=== PATIENT | male | born 1950 | race Caucasian/White ===

== ENCOUNTER 2016-07-10 07:35 | Day surgery (SDC) | payer OTHER, MEDICARE ==
[2016-07-08 12:39] VITALS: BMI 23.7
[2016-07-10] MEDS ORDERED: MIDAZOLAM HCL 2 MG/2 ML SINGLE DOSE VIAL ONE ×2 (08:37→09:30)
[2016-07-10] MEDS ORDERED: ROPIVACAINE HCL 0.5% 30ML VIAL ONE (08:37)
[2016-07-10] MEDS ORDERED: SODIUM CHLORIDE 0.9% P/F 10 ML VIAL IJ ONE (08:37)
[2016-07-10] MEDS ORDERED: DEXAMETHASONE SOD PHOSPHATE/PF 10 MG/ML SDV ONE (08:37)
[2016-07-10] MEDS ORDERED: ceFAZolin SODIUM 1 GM VIAL ONE (09:29)
[2016-07-10] MEDS ORDERED: PROPOFOL 20 ML ONE (09:30)
[2016-07-10] MEDS ORDERED: LIDOCAINE 1%-EPI 1:100,000 30 ML MDV IJ ONE (09:57)
[2016-07-10] MEDS ORDERED: BUPIVACAINE HCL/PF 0.5% (5MG/ML) 10 ML VIAL ONE (09:58)
[2016-07-10] MEDS ORDERED: BUPIVACAINE HCL 0.25% 125 MG/50 ML VIAL ONE (09:58)
[2016-07-10] MEDS ORDERED: ePHEDrine SULFATE 50 MG/1 ML AMPULE ONE ×2 (09:59→10:13)
[2016-07-10] MEDS ORDERED: GUM MASTIC/STORAX/MSAL/ALCOHOL 1 DRP DROPSBTL MC ONE (11:57)
--- NOTE | 2016-07-10 12:45 | OP ---
DATE OF OPERATION: 07/10/2016 PREOPERATIVE DIAGNOSIS: Right quadriceps tendon rupture. POSTOPERATIVE DIAGNOSIS: Right quadriceps tendon rupture. PROCEDURE: Right quadriceps tendon repair. SURGEON: Rui Muro MD CENTER MACHINE OPERATOR: JUDITH Berger, whose skillful assistance was necessary for the safe and timely performance of this procedure. Ms. Winkler was able to provide limb positioning, child welfare assistant retraction, assist in suture passing and anchor passing during the procedure. This was all while the dentures lab technician was on the back table managing the implants and instruments. ANESTHESIA TYPE: General plus local. POSTOPERATIVE CONDITION: Stable. COMPLICATIONS: None. IMPLANTS: Arthrex SwiveLock 4.75 anchors x3. SPECIMENS: Muscle biopsy x1. INDICATION: This is a pleasant gentleman who had suffered a fall down stairs and was unable to ambulate well afterwards. He was seen in the office and found to have a distal quadriceps rupture. Treatment options, including nonoperative versus operative management, were discussed. We discussed nonoperative management would result in chronic quadriceps dysfunction and altered gait. We discussed operative management should restore normal gait or close to it. We reviewed operative risks in detail, including bleeding, infection, neurovascular injury, need for further surgery, such as manipulation or debridement or revision repair, chance of repair failure, arthrofibrosis. We discussed the recovery from surgery. We discussed medical risks such as DVT, PE, heart attack, stroke, or . We reviewed the use of perioperative DVT prophylaxis with aspirin. We discussed the use of antibiotics prior to the case. I addressed all the patient's and family's questions. They voiced understanding and elected to proceed. PROCEDURE: Patient was brought to the operating room, where general anesthesia was administered. The right lower extremity was then prepped and draped in the usual sterile fashion. A preoperative dose of antibiotics was given and the usual timeout procedure was performed. At this point, the limb was exsanguinated. The tourniquet was inflated to 250 mmHg. An incision was planned out over the area of the quadriceps tendon. This was carried down through skin and subcutaneous tissue. Electrocautery was used to control hemostasis. The fascia over the quadriceps was now split, exposing a large hematoma. This was evacuated. The knee was irrigated. The undersurface of the patella was palpated and there was some chondromalacia present. At this point, the superior pole of the patella was debrided. This was done using a curet, rongeur, as well as a bur given that there was a great deal of sclerotic bone present. In addition, some 2.0 drill holes were created in order to allow for better egress of the marrow contents of the patella. The distal quadriceps was also debrided of any nonviable tissue. At this point, 3 drill holes were created spaced out evenly across the superior surface of the patella. The holes were then tapped. SwiveLock anchors loaded with an extra FiberTape were then loaded into the medial and lateral most holes. The FiberWire sutures were now passed each with 1 end through the quadriceps tendon in a locking whipstitch fashion. Using a karina technique, the tendon was then drawn down to the superior patellar surface, maintaining the leg in full extension during this process. These were then tied. The FiberTape sutures were then passed in a whipstitch pattern with the more lateral limbs and then with the medial patterns they were passed in a Sarah type when the medial limbs were passed into the 3rd anchor and the 3rd anchor was seated to provide a mattress-type effect on the quadriceps tendon. The knee was now flexed to 30 degrees with no gapping of the tendon. The extra sutures from the middle anchor were also passed into a whipstitch locking-type pattern and tied as well. At this point, the retinaculum was repaired. This was done using No. 1 Vicryl in the retinacular tear. It did extend extensively both medially and laterally. There was a portion of the VMO muscle belly which also was involved in the tear and this was loosely approximated using No. 1 Vicryl as well. The VMO portion now a small piece was excised using a 15 blade and sent for biopsy at the request of the patient's primary physician. He wanted to rule out statin myositis. The wound was once again irrigated. The deep tissue was approximated using 0 Vicryl. The subcutaneous tissue was approximated using 2-0 Vicryl. Skin was closed using a running 3-0 nylon. Sterile dressings were placed. The patient was placed into a well-padded cylinder cast. He was extubated and transferred to the recovery room in stable condition. Lew LOUISE/[id number]
[2016-07-10] MEDS ORDERED: oxyCODONE HCL 5 MG TABLET ONE (13:21)
[2016-07-10 14:17] VITALS: BP 138/74; PULSE 62
[2016-07-10 15:46] VITALS: TEMP 97.5
--- NOTE | 2016-07-23 11:55 | PATH ---
Surgical Pathology Report Patient Name: TINO ALAMO Med. Rec. #: [id number] /Age/Gender: 1950 (Age: 65) / M Account: [id number] Location: [facility] Taken: 07/10/2016 Received: 07/10/2016 Reported: 07/23/2016 Physicians: Rui Muro M.D. Specimen(s) Received MUSCLE BIOPSY RIGHT QUAD Clinical History Rule out statin myositis Final Diagnosis MUSCLE BIOPSY RECEIVED FROM [facility] ([id number]) "DIAGNOSIS: MUSCLE (UNSPECIFIED SITE), BIOPSY: SKELETAL MUSCLE SHOWING NON-SPECIFIC CHANGES, MILD TO MODERATE (SEE COMMENT). Comment: This biopsy mainly reveals a mild to moderate degree of myofiber atrophy. The distribution pattern of those atrophic fibers is non-specific for further characterization of the disease. Although a single regenerating fiber is found, no active myonecrosis or inflammation is seen in this biopsy. This report has been reviewed electronically and signed on 07/18/2016 by Mani Wu M.D." See [facility] report for additional details. Electronically Signed Tino Durand M.D. Gross Description Received fresh at room temperature, labeled "muscle biopsy right quad" is a 0.5 x 0.5 x 0.4 cm unoriented fragment of meyers tissue consistent with skeletal muscle. Grossly the muscle appears contracted. The specimen is divided into three parts: a portion of the specimen is attached to a wooden stick with a string and submitted fresh on an ice pack, another portion of the specimen is attached to a wooden stick with a string and submitted in formalin; a third portion is submitted in glutaraldehyde. [facility]. final/07/11/2016
== END 2016-07-10 14:15 | disposition home or self-care (01) ==
LOC: FASU 07:35
PROVIDERS: ATTEND Orthopaedic Surgery Sports Medicine
PROC: 0LQL0ZZ Repair Right Upper Leg Tendon, Open Approach (ICD-10-PCS; principal; 2016-07-10 09:57)
DX: S76.111A Strain of right quadriceps muscle, fascia and tendon, initial encounter (principal); W10.9XXA Fall (on) (from) unspecified stairs and steps, initial encounter; Y93.9 Activity, unspecified; Y92.9 Unspecified place or not applicable
CPT/HCPCS: 88300-TC; 94760; 97116-GP